=== PATIENT | female | born 2000 | race Asian ===

== ENCOUNTER 2019-09-14 23:34 | Emergency (ER) | payer OTHER ==
[~2019-09-14] VITALS: Ht 160 cm; Wt 65.8 kg
[2019-09-14 23:40] VITALS: BP 129/90
--- NOTE | 2019-09-14 23:43 | NUR ---
TO LOBBY A/W BED , AMBULATORY
[2019-09-15 00:42] LABS: APPEARANCE,URINE CLEAR (CLEAR); BILIRUBIN,URINE NEGATIVE (NEGATIVE); BLOOD, URINE NEGATIVE (NEGATIVE); COLOR,URINE YELLOW (YELLOW); LEUKOCYTE ESTERASE ,URINE NEGATIVE (NEGATIVE); NITRITE, URINE NEGATIVE (NEGATIVE); UGLUCOSE NEGATIVE (NEGATIVE)
--- NOTE | 2019-09-15 01:10 | NUR ---
PATIENT LEFT WITHOUT BEING SEEN BY DR. Damico. NO FURTHER CARE PROVIDED FOR PATIENT.
== END 2019-09-15 01:10 | disposition left against medical advice (07) ==
LOC: MED 23:34
DX: R10.30 Lower abdominal pain, unspecified (principal); R51 Headache; Z53.21 Procedure and treatment not carried out due to patient leaving prior to being seen by health care provider
CPT/HCPCS: 81003; 99281